=== PATIENT | female | born 1950 | race Caucasian/White ===

== ENCOUNTER → 2020-11-18 | Outpatient (CLI) | payer OTHER | LOC: MRI 11-11 15:00 | DX: M25.512 Pain in left shoulder (principal); M77.8 Other enthesopathies, not elsewhere classified | CPT/HCPCS: 73221 ==

== ENCOUNTER → 2020-11-27 | Outpatient (CLI) | payer OTHER | LOC: US 13:07 | DX: I65.23 Occlusion and stenosis of bilateral carotid arteries (principal) | CPT/HCPCS: 93880 ==

== ENCOUNTER → 2021-02-04 | Outpatient (CLI) | payer OTHER | LOC: HEART 5 08:00 | DX: I10 Essential (primary) hypertension (principal); I25.10 Atherosclerotic heart disease of native coronary artery without angina pectoris; I11.9 Hypertensive heart disease without heart failure; I07.1 Rheumatic tricuspid insufficiency | CPT/HCPCS: 93306 ==

== ENCOUNTER → 2022-02-16 | Outpatient (CLI) | payer OTHER | LOC: EXRD 12:45 | DX: I73.9 Peripheral vascular disease, unspecified (principal) | CPT/HCPCS: 93925 ==